=== PATIENT | female | born 1980 | race Caucasian/White ===

== ENCOUNTER 2022-03-06 08:22 | Emergency (ER) | payer MEDICAID ==
[~2022-03-06] VITALS: Ht 167.6 cm; Wt 56.0 kg
[2022-03-06 08:26] VITALS: BP 148/89
[2022-03-06] MEDS ORDERED: ACETAMINOPHEN 325MG TABLET PO STA (08:33)
[2022-03-06] MEDS ORDERED: ONDANSETRON 4MG ODT PO NR (09:00)
[2022-03-06] MEDS ORDERED: VISCOUS LIDOCAINE 2% 15 ML UDC MM ONE (09:00)
[2022-03-06] MEDS ORDERED: PANTOPRAZOLE 40MG DR TABLET PO ONE (09:00)
[2022-03-06 09:09] LABS: BASOPHILS % 0.9 % (0.0-2.0); EOSINOPHILS % 2.6 % (0.0-5.0); HEMATOCRIT. 32.4 % (36.0-48.0); HEMOGLOBIN. 9.7 g/dL (12.0-16.0); MEAN CORPUSCULAR HEMOGLOBIN 21.4 pg (28.0-32.0); MEAN CORPUSCULAR VOLUME 71.4 fL (81.0-99.0); MEAN PLATELET VOLUME 7.8 fl (7.4-10.4); MONOCYTES % 6.8 % (2.0-8.0); NEUTROPHILS % 58.7 % (40.0-76.0); PLATELET 319 x1000/uL (130-400); RED BLOOD CELL COUNT 4.53 mill/uL (4.2-5.4); RED CELL DISTRIBUTION WIDTH 20.3 % (11.6-14.6)
[2022-03-06 09:25] LABS: CHLORIDE 111 mEq/L (98-107)
[2022-03-06 09:29] LABS: HCG SCREEN NEGATIVE
[2022-03-06 09:34] LABS: ETHANOL BLOOD < 10 mg/dL
[2022-03-06 09:53] LABS: CLARITY URINE CLEAR (CLEAR); COLOR URINE YELLOW (YELLOW); KETONES URINE NEGATIVE (NEGATIVE); LEUKOCYTE ESTERASE URINE NEGATIVE (NEGATIVE); NITRITE URINE NEGATIVE (NEGATIVE); OCCULT BLOOD URINE NEGATIVE (NEGATIVE); PROTEIN URINE NEGATIVE (NEGATIVE); UROBILINOGEN URINE 0.2 E.U./dL (0.2-1.0)
[2022-03-06 10:49] LABS: *BARBITURATES SCREEN URINE NEGATIVE (NEGATIVE); *BENZODIAZEPINES SCREEN URINE NEGATIVE (NEGATIVE); METHADONE URINE SCREEN NEGATIVE (NEGATIVE); OPIATES URINE SCREEN NEGATIVE (NEGATIVE); PHENCYCLIDINE URINE SCREEN NEGATIVE (NEGATIVE)
[2022-03-06 10:50] LABS: *AMPHETAMINES SCREEN URINE PRESUMTIVE POSITIVE (NEGATIVE); *COCAINE SCREEN URINE PRESUMTIVE POSITIVE (NEGATIVE)
[2022-03-06 10:51] LABS: CANNABINOID URINE SCREEN PRESUMTIVE POSITIVE (NEGATIVE)
[2022-03-06] MEDS ORDERED: PROT40 MT (10:54)
[2022-03-06] MEDS ORDERED: ACET-2708 MT (10:54)
== END 2022-03-06 11:11 | disposition home or self-care (01) ==
LOC: ER 08:22
DX: R10.13 Epigastric pain (principal); F17.200 Nicotine dependence, unspecified, uncomplicated; F12.10 Cannabis abuse, uncomplicated; I10 Essential (primary) hypertension; Z88.0 Allergy status to penicillin; Z98.890 Other specified postprocedural states; Z13.9 Encounter for screening, unspecified; Z91.14 Patient's other noncompliance with medication regimen
CPT/HCPCS: 36415; 76705; 80053; 80305; 80320; 81003; 81025; 83690; 84703; 85025; 93005; 99285; Q0162; G0480